=== PATIENT | female | born 1985 | race Caucasian/White ===

== ENCOUNTER 2017-12-24 09:21 | Emergency (ER) | payer OTHER ==
[~2017-12-24] VITALS: Ht 162.6 cm; Wt 68.0 kg
[~2017-12-24 09:21] MED LIST: ALLEGRA-D 12 H1 EACH PO; AUGMENTIN 875875 MG PO; BACTRIM DS TAB1 EACH PO; CARAFATE 1 GM TA1 GM PO; LEXAPRO 10 MG T10 MG PO; MULTIVITAMINS; PEPCID20 MG PO; PREDNISONE 20 M20 M1 PO; PRENATAL; ZOFRAN ODT4 MG PO
[2017-12-24] MEDS ORDERED: MUCINEX D TABL1 EAC1 PO (09:37)
[2017-12-24 09:42] LABS: URINE BILIRUBIN NEGATIVE (Negative); URINE BLOOD NEGATIVE (Negative); URINE CLARITY CLEAR; URINE COLOR YELLOW; URINE GLUCOSE-RANDOM NEGATIVE (Negative); URINE KETONES NEGATIVE (Negative); URINE LEUKOCYTES-REFLEX NEGATIVE (Negative); URINE NITRITE-REFLEX NEGATIVE (Negative); URINE PROTEIN NEGATIVE (Negative); URINE UROBILINOGEN 0.2 E.U./dl (0.2-1.0)
[2017-12-24 11:14] LABS: ABSOLUTE EOSINOPHILS 0.1 thou/uL (0.0-0.7); ABSOLUTE LYMPHOCYTES 1.2 thou/uL (0.8-5.3); ABSOLUTE MONOCYTES 0.5 thou/uL (0.0-1.2); ABSOLUTE NEUTROPHILS 5.1 thou/uL (1.6-8.1); BASOPHILS 0.6 %; EOSINOPHILS 1.3 %; HEMATOCRIT 40.9 % (37.0-47.0); HEMOGLOBIN 13.4 gm/dL (12.0-15.0); LYMPHOCYTES 17.9 %; MCHC 32.9 g/dL (28.0-37.0); MCV 85.3 fL (80.0-100.0); MONOCYTES 6.6 %; MPV 9.7 fl. (7.2-11.1); NUCLEATED RBCS 0 /100WBC; PLATELET COUNT* 313 thou/uL (150-400); POLYS 73.6 %; RBC 4.79 mil/uL (4.20-5.00); RDW-CV 13.7 % (10.5-14.5); WBC 6.9 thou/uL (4.0-11.0)
[2017-12-24 12:02] VITALS: BP 122/66
== END 2017-12-24 12:02 | disposition home or self-care (01) ==
LOC: M.ERS 09:21
PROVIDERS: Personal Emergency Response Attendant
DX: N93.8 Other specified abnormal uterine and vaginal bleeding (principal); F17.210 Nicotine dependence, cigarettes, uncomplicated